=== PATIENT | female | born 1965 | race Caucasian/White ===

== ENCOUNTER 2022-08-28 18:28 | Emergency (ER) | payer BC ==
--- OUTSIDE RECORDS SUMMARY | 2022-08-28 18:31 | XMS REPORT | Continuity of Care Document ---
:1965 Author Organization [facility] [place] t Address [facility] [place] [place] [address] Care Team Providers Name Role Phone Hansa Woodruff Primary Care Physician YIMI HERRERA Attending Clinician Unavailable Temitope Cramer Attending Clinician Unavailable Yimi Herrera MD Attending Clinician Only, Adc Test Attending Clinician Unavailable Doctor Unassigned, [place] Attending Clinician Unavailable AMRITA HENRY Attending Clinician Unavailable Shakira Attending Clinician Unavailable Damion Forrester Attending Clinician [phone] YIMI HERRERA Admitting Clinician Unavailable Temitope Cramer Admitting Clinician Unavailable Yimi eHrrera MD Admitting Clinician AMRITA HENRY Admitting Clinician Unavailable Shakira Admitting Clinician Unavailable Physician, No Primary or Family Admitting Clinician Unavaila ble Payers Payer Name Policy Type Policy Number Effective Date Expiration Date S ource HIM BCJORDI ARAUJO [id number] 2020 ADVANTAGE O 00:00:00 [place]: GAYLE [id number] 2019 ADVANTAGE (HMO) 00:00:00 Problems Condition Condition Condition Status Onset Resolution Last Treating Co mments Source Name Details Category Date Date Treatment Clinician Date Increased Increased Problem Active Gilson ston frequency Frequency 9-08 Metr o of of 00:00: Urology urination Urination 00 Primary Primary Problem Active 2015-10 [place] 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 00 Allergies, Adverse Reactions, Alerts Allergy Allergy Status Severity Reaction(s) Onset Inactive Treating Comm ents Source Name Type Date Date Clinician No Known DA Active U 2018-10 [facility] Allergie 0-16 [place] [facility] 00:[facility]: [facility]ope 00 [facility] HYDROCOD Allergy Active [place] ONE-IBUP to 10-30 [facility] ROFEN substanc 00:00: Urology e 00 NO KNOWN Drug Active Univers ALLERGIE Class ity of S [facility] Codeine Allergy Active [facility] to [facility] substanc Urology e Social History Social Habit Start Date Stop Date Quantity Comments Source Exposure to Not sure [facility] SARS-CoV-2 (event) Medica l Branch Tobacco use and 2021-08-17 2021-08-17 Never used [facility] exposure 00:00:00 00:00:00 [facility] Sex Assigned At [birth year] [facility] 00:00:00 00:00:00 [facility] Smoking Status Start Date Stop Date Source Unknown if ever smoked [facility] Never smoker [facility] Medications Ordered Filled Start Stop Current Ordering Indication Dosage Frequency Signature Comments Components Source Medication Medication Date Date Medication? Clinician (SIG) Name Name jenny 2020-10 Yes PRN, Univer s (GAS RELIEF 0-20 Starting ity of (SIMETHICON 18:07: on Mon E)) 40 00 08/18/21 Medical mg/0.6 mL at 1307, Branch drops Until Discontinu ed, Routine, Intra-op joanniconrajesh 2020-10- No PRN, Unive rs (GAS RELIEF 0-20 10-20 Starting ity of (SIMETHICON 18:07: 21:09 on Mon E)) 40 00 :19 08/18/21 Medical mg/0.6 mL at 1307, Branch drops Until Mon08/18/21 at 1609, Routine, Intra-op lactated 2020-10- No 1000mL at 42 Unive rs ringers IV 0-20 10-20 mL/hr, ity of infusion 17:45: 17:10 1,000 mL, Rashaad as 1,000 mL 00 :00 IV Medical Infusion, Branch ONCE, 1 dose, On Mon08/18/21 at 1245, Routine, Endo Pre-op lactated 2020-10- No 1000mL at 42 Unive rs ringers IV 0-20 10-20 mL/hr, ity of infusion 17:45: 17:10 1,000 mL, Rashaad as 1,000 mL 00 :00 IV Medical Infusion, Branch ONCE, 1 dose, On Mon08/18/21 at 1245, Routine, Endo Pre-op dapaglifloz 2020-10 Yes 10mg Take 10 mg Univers in 0-20 by mouth ity of (FARXIGA) 14:09: daily. [place] 10 mg 19 Medical tablet Branch dulaglutide 2020-10 Yes 1.5mg inject 1.5 Univers (TRULICITY) 0-20 mg under ity of 1.5 mg/0.5 14:09: the skin Rashaad as mL PnIj 19 weekly. Medical Branch dapaglifloz 2020-10 Yes 10mg Take 10 mg Univers in 0-20 by mouth ity of (FARXIGA) 14:09: daily. [place] 10 mg 19 Medical tablet Branch dulaglutide 2020-10 Yes 1.5mg inject 1.5 Univers (TRULICITY) 0-20 mg under ity of 1.5 mg/0.5 14:09: the skin Rashaad as mL PnIj 19 weekly. Medical Branch amoxicillin amoxicillin No amoxicilli [place] [phone] n 875 [facility] mg-potassiu mg-potassiu mg-potassi Urology m m um clavulanate clavulanate clavulanat 125 mg 125 mg e 125 mg tablet tablet tablet Farxiga 10 Farxiga 10 No Farxiga 10 [place] mg tablet mg tablet mg tablet [facility] Lantus Lantus No Lantus [place] Solostar Solostar Solostar Met ro U-100 U-100 U-100 Urology Insulin Insulin Insulin methocarbam methocarbam No methocarba [place] ol 500 mg ol 500 mg mol 500 mg Metro tablet tablet tablet Urology Premarin Premarin No Premarin Gilson ston 0.625 0.625 0.625 [facility] mg/gram mg/gram mg/gram Urolog y vaginal vaginal vaginal cream cream cream Trulicity Trulicity No Trulicity [place] 1.5 mg/0.5 1.5 mg/0.5 1.5 mg/0.5 [facility] mL mL mL Urology subcutaneou subcutaneou subcutaneo s pen s pen us pen injector injector injector valacyclovi valacyclovi No valacyclov [place] r 1 gram r 1 gram ir 1 gram Me tro tablet tablet tablet Urology Zoloft Zoloft No Zoloft [facility] Immunizations Ordered Immunization Filled Immunization Date Status Commen ts Source Name Name influenza, influenza, 2020-08-30 Completed [facility], injectable, 00:00:00 Urology quadrivalent quadrivalent influenza, influenza, 2019-08-30 Completed [facility] injectable, injectable, 00:00:00 Urology quadrivalent quadrivalent influenza, influenza, 2018-08-30 Completed [facility] injectable, injectable, 00:00:00 Urology quadrivalent quadrivalent Vital Signs Vital Name Observation Time Observation Value Comments Source Systolic blood 2021-08-18 18:52:00 135 mm[Hg] [facility] Diastolic blood 2021-08-18 18:52:00 76 mm[Hg] [facility] Heart rate 2021-08-18 18:52:00 81 /min [facility] Respiratory rate 2021-08-18 18:52:00 17 /min [facility] Oxygen saturation in 2021-08-18 18:52:00 99 /min [facility] Arterial blood by [facility] Pulse oximetry Branch Body temperature 2021-08-18 18:27:00 36.39 Balbina [facility] Body height 2021-08-18 17:12:00 157.5 cm [facility] Body weight 2021-08-18 17:12:00 69.854 kg [facility] BMI 2021-08-18 17:12:00 28.17 [facility] Sy[facility]olic blood 2021-08-18 17:12:00 115 mm[Hg] Univer sity of pressure [facility] Diastolic blood 2021-08-18 17:12:00 51 mm[Hg] Unive rsity of pressure [facility] Heart rate 2021-08-18 17:12:00 83 /min [facility] Body temperature 2021-08-18 17:12:00 36.72 Balbina [facility] Respiratory rate 2021-08-18 17:12:00 18 /min [facility] [place] [facility] Body height 2021-08-18 17:12:00 157.5 cm [facility] Body weight 2021-08-18 17:12:00 69.854 kg [facility] BMI 2021-08-18 17:12:00 28.17 kg/m2 [facility] Oxygen saturation in 2021-08-18 17:12:00 100 /min [facility] Ar[facility] blood by [facility] Pulse oximetry Branch Height 2021-06-10 00:00:00 62 [in_i] [facility] Urology BMI (Body Mass 2021-06-10 00:00:00 32 kg/m2 [place] [facility] Index) Urology Body Weight 2021-06-10 00:00:00 175 [lb_av] [facility] Urology Procedures Procedure Date / Time Performing Clinician Source Performed COLONOSCOPY (ENDO) 2021-08-18 17:57:08 Lino [facility] COLONOSCOPY (ENDO) 2021-08-18 17:57:08 Lino [facility] COLONOSCOPY 2021-08-18 17:46:00 Yimi Herrera [facility] CONSENT/REFUSAL FOR 2021-08-17 13:10:52 Doctor Unassigned, No [facility] DIAGNOSIS AND TREATMENT [facility] ASSIGNMENT OF BENEFITS 2021-08-17 13:10:42 Doctor Unassigned, No [facility] ASSIGNMENT OF BENEFITS 2021-08-17 13:10:29 Doctor Unassigned, No [facility] EXTERNAL PROVIDER 2021-08-04 05:01:00 Doctor Unassigned, No [facility] RECORDS Name Medical Branch EXTERNAL PROVIDER 2021-08-04 05:01:00 Doctor Unassigned, No [facility] RECORDS Name [facility] Plan of Care Planned Activity Planned Date Details Comments Source Diagnostic Test 2021-06-10 BMP, serum or [facility] Met ro Pending 00:00:00 plasma [code = BMP, Urology serum or plasma] Diagnostic Test 2021-06-10 urinalysis, [place] Metr o Pending 00:00:00 dipstick [code = Urology urinalysis, dipstick] Encounters Start End Encounter Admission Attending Care Care Encounter Source Date/Time Date/Time Type Type Clinicians Facility Department ID 2021-08-31 Outpatient R [facility] [id number] Univers 07:48:[address] [facility] 2021-09-01 2021-09-01 Outpatient AVELINO Cramer, [facility] [id number] [facility] 12:00:00 12:00:00 [facility]ope [facility] 2021-08-18 2021-08-18 [facility] [id number] Univers 11:44:00 14:00:00 Encounter Yimi mena [id number] ity [place] [id number] [facility] 071 Branch 2021-08-18 2021-08-18 Surgery [facility] [id number] Univers 12:42:00 13:20:00 Yimi mena 350.1.13.10 [place] [id number] [facility] 020 Branch 2021-08-17 2021-08-17 Laboratory Only, Adc Test [facility] [id number]. [id number] Univers 08:12:39 08:27:39 Only Yimi Herrera 350.1.1 3.10 it[place] [id number] [place] [address] Branch 2021-08-17 2021-08-17 Outpatient R OLVIN [facility] [id number] Univers 08:15:00 08:15:00 YIMI Mena f [facility] 2021-08-17 2021-08-17 Orders Doctor NAVEEN [id number] Univers 00:00:00 00:00:00 Only Unassigned, BLESSING 350.1.13.10 ity of [place] [facility] 4.2.7.2.686 [facility] as [id number] [facility] 009 Branch 2021-06-29 2021-07-01 Inpatient E MOVVA, [facility] MED 7500 [facility] 16:12:00 14:20:00 AMRITA 2021-06-30 2021-06-30 Outpatient Goldfarb_R [facility] [id number] [place] 10:45:00 10:45:00 [id number] [facility] 2021-06-10 2021-06-10 Outpatient Goldfarb_R U [facility] [id number] [place] 06:09:00 06:09:00 [id number] [facility] 2021-06-10 2021-06-10 Damion [facility] - [id number] Poncho hartley 00:00:00 00:00:00 Miquel Forrester [facility]: [facility] [facility] [address], [place] [address] , Ph. 2021-06-10 2021-06-10 Outpatient Usama, U [facility] [id number] 00:00:00 00:00:00 Damion [id number] 2021-06-08 2021-06-08 Outpatient Goldfarb_R [facility] [id number] [place] 04:52:00 04:52:00 [id number] [facility] 2020-04-08 2020-04-08 Outpatient AVELINO Cramer [facility] [id number] [address] [facility] 12:00:00 12:00:00 Temitope [facility] Results Test Description Test Time Test Comments Results Result Sour e Comments - XR FLUORO NDL 2019-08-21 Patient Name: 08:01:00 TYREE CARRASQUILLO Unit No: [id number] EXAMS: CPT CODE: [id number] XR FLUORO NDL 21556 Fluoroscopically guided injection of the right shoulder with steroid and lidocaine COMPARISON: No prior exams available. FINDINGS: After informed consent was obtained a needle was placed in the right shoulder with fluoroscopic guidance. Its position was confirmed by injecting air and obtaining an AP radiograph. Subsequently 2 mL of Kenalog 40 mg per cc and 2 mL of 1 percent lidocaine was injected. No immediate complications were encountered. 6 seconds of fluoroscopy time was utilized. IMPRESSION: Technically successful steroid injection of the right shoulder at 0801 Reported and signed by: Moises Levine M.D. CC: Andrew Buchanan MD Technologist: RT Da.(R) Transcribed D/ (800) AdriannaSLJ [facility] NAME: TYREE CARRASQUILLO [address] [facility] PHYS: Andrew Lassiter MD : 1965 AGE: 54 SEX: F [place] [address] LOC: Y.RAD PHONE #: [phone] EXAM DATE: 08/14/2019 STATUS: DEP CLI FAX #: [phone] RAD #: D/C DT PAGE 1 Signed Report Patient Name: TYREE CARRASQUILLO Unit No: [id number] EXAMS: CPT CODE: [id number] XR FLUORO NDL 62684 <Continued> Orig Print D/T: S: 08/21/2019 (0805) [facility] NAME: TYREE CARRASQUILLO [address] [facility] PHYS: Andrew Lassiter MD : 1965 AGE: 54 SEX: F [place] [address] LOC: Y.RAD PHONE #: [phone] EXAM DATE: 08/14/2019 STATUS: DEP CLI FAX #: [phone] RAD #: D/C DT PAGE 2 Signed Report
[2022-08-28] MEDS ORDERED: BUPIVACAINE 0.5% PF 10 ML VIAL ONE (19:28)
[2022-08-28] MEDS ORDERED: LIDOCAINE 1% MPF 30 ML VIAL ONE (19:28)
--- NOTE | 2022-08-28 20:14 | ER ---
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 Coronavirus screen: Vaccine status: Patient reports receiving the 2nd dose of the covid vaccine. Client denies travel out of the [place] in the last 14 days. At this time, the client does not indicate any symptoms associated with coronavirus-19. Ebola Screen: Patient denies travel to an Ebola-affected area in the 21 days before illness onset. Complicating Factors: There are no complicating factors for this patient. Initial Sepsis Screen: Does the patient meet any 2 criteria? No. Patient's initial sepsis screen is negative. Does the patient have a suspected source of infection? Yes: Skin breakdown/wound. Risk Assessment: Do you want to hurt yourself or someone else? Patient reports no desire to harm self or others. Onset of symptoms was August 28, 2022. 18:53 Method Of Arrival: Ambulatory ll1 18:53 Acuity: GEOVANNY 3 ll1 Triage Assessment: 18:55 General: Appears in no apparent distress. Behavior is calm, cooperative, appropriate ll1 for age. Pain: Complains of pain in right hand Quality of pain is described as aching, throbbing. Derm: R hand 4th digit. Injury Description: Laceration. 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 - Social history:: Smoking status: Patient denies any tobacco usage or history of. Screenin:36 Abuse screen: Denies threats or abuse. Denies injuries from another. Nutritional tw5 screening: No deficits noted. Tuberculosis screening: No symptoms or risk factors identified. Fall Risk None identified. Assessment: 20:35 General: Appears in no apparent distress. Behavior is calm, cooperative. tw5 Musculoskeletal: 20:36 Injury Description: Laceration is clean. tw5 Vital Signs: 18:53 BP 117 / 70; Pulse 89; Resp 16; Temp 97.6; Pulse Ox 100% ; Weight 61.23 kg; Height 5 ll1 ft. 2 in. (157.48 cm); Pain 8/10; 18:53 Body Mass Index 24.69 (61.23 kg, 157.48 cm) ll1 ED Course: 18:29 Patient arrived in ED. am2 18:54 Triage completed. ll1 19:09 Ema Brasher FNP-C [facility]. kb 19:09 Stephan Pollard MD is Attending Physician. kb 19:26 Ailyn Fernando is Primary Nurse. tw5 19:32 Dressings: Hipolito x 2 palmar aspect of middle phalanx of right ring finger and palmar mm9 aspect of proximal phalanx of right ring finger. Wound care: to laceration. 19:34 Patient has correct armband on for positive identification. Call light in reach. Adult mm9 w/ patient. 20:36 No provider procedures requiring assistance completed. Patient did not have IV access tw5 during this emergency room visit. 20:36 Splint/sling/ice applied as appropriate. tw5 Administered Medications: 20:12 Drug: Bupivacaine (0.5 %) 1 vials {Note: administered by provider at the bedside.} tw5 Volume: 10 ml; Route: Infiltration; 20:12 Drug: Lidocaine (1 %) 1 vials {Note: administered by the provider at the bedside.} tw5 Volume: 5 ml; Route: Infiltration; Medication: 20:36 VIS not applicable for this client. tw5 Outcome: 20:13 Discharge ordered by . kb 20:36 Discharged to home tw5 20:36 Condition: improved 20:36 Discharge instructions given to patient, Instructed on discharge instructions, follow up and referral plans. Demonstrated understanding of instructions, follow-up care, medications, Prescriptions given X 1. 20:37 Patient left the ED. tw5 Signatures: Ema Brasher FNP-C GETTERING FILAMENT MACHINE OPERATOR-CkMaria C Henriquez am2 Sukumar Calloway RN RN ll1 Ailyn Fernando tw5 Jennie Luis mm9
--- NOTE | 2022-08-28 20:14 | EDPHYS ---
Physician Documentation [facility] Name: Chantell Collins Age: 57 yrs Sex: Female : 1965 Arrival Date: 08/28/2022 Time: 18:29 Bed 11 Private MD: ED Physician Stephan Pollard HPI: 08/28 19:37 This 57 yrs old Female presents to ER via Ambulatory with complaints of Laceration To kb Hand. 19:37 The patient has a laceration related to: washing dishes and cut it on a broken crockpot kb occurred at home, and there are no complicating factors. The injury was accidental. The laceration(s) is(are) located on the palmar aspect of proximal phalanx of right ring finger and palmar aspect of middle phalanx of right ring finger. Onset: The symptoms/episode began/occurred just prior to arrival. Associated signs and symptoms: The patient has no apparent associated signs or symptoms. The patient has not experienced similar symptoms in the past. The patient has not recently seen a physician. 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 - Social history:: Smoking status: Patient denies any tobacco usage or history of. ROS: 19:35 Constitutional: Negative for fever, chills, and weight loss. kb 19:35 Skin: Positive for laceration(s), of the palmar aspect of middle phalanx of right ring finger and palmar aspect of proximal phalanx of right ring finger. 19:35 All other systems are negative. Exam: 19:36 Constitutional: This is a well developed, well nourished patient who is awake, alert, kb and in no acute distress. Head/Face: Normocephalic, atraumatic. ENT: Moist Mucous membranes Cardiovascular: Regular rate and rhythm with a normal S1 and S2. No gallops, murmurs, or rubs. No pulse deficits. Respiratory: Respirations even and unlabored. No increased work of breathing. Talking in full sentences Abdomen/GI: Soft, non-tender. No distention MS/ Extremity: Pulses equal, no cyanosis. Neurovascular intact. Full, normal range of motion. Neuro: Awake and alert, GCS 15, oriented to person, place, time, and situation. Moves all extremities. Normal gait. Psych: Awake, alert, with orientation to person, place and time. Behavior, mood, and affect are within normal limits. 19:36 Skin: injury, laceration(s), the wound is approximately 3 cm(s), of the palmar aspect of proximal phalanx of right ring finger and palmar aspect of middle phalanx of right ring finger, that can be described as clean, no foreign body, irregular, with mild bleeding. Vital Signs: 18:53 BP 117 / 70; Pulse 89; Resp 16; Temp 97.6; Pulse Ox 100% ; Weight 61.23 kg; Height 5 ll1 ft. 2 in. (157.48 cm); Pain 8/10; 18:53 Body Mass Index 24.69 (61.23 kg, 157.48 cm) ll1 Procedures: 19:36 Nerve block: (digital) of palmar aspect of proximal phalanx of right ring finger kb Medication: Lidocaine 1% without epinephrine Marcaine 0.5%, Amount: 5 mls were injected, Effect: the patient has resolution of the pain, Set up for procedure. Performed by Ema LANDIN Patient tolerated well. Laceration: 20:12 Wound Repair of 3cm ( 1.2in ) subcutaneous laceration to palmar aspect of proximal kb phalanx of right ring finger and palmar aspect of middle phalanx of right ring finger. Irregularly shaped.. Distal neuro/vascular/tendon intact. Anesthesia: Digital block administered with 1% lidocaine. Wound prep: Extensive cleansing with betadine by critical systems technician, Wound irrigation with saline by critical systems technician. Skin closed with 9 5-0 Prolene using simple sutures and sterile technique. Patient tolerated well. MDM: 19:17 Patient medically screened. kb 19:35 Data reviewed: vital signs, nurses notes. Data interpreted: Pulse oximetry: on room air kb is 100 %. Interpretation: normal. 19:36 Counseling: I had a detailed discussion with the patient and/or guardian regarding: the kb historical points, exam findings, and any diagnostic results supporting the discharge/admit diagnosis, the need for outpatient follow up, a family practitioner, to return to the emergency department if symptoms worsen or persist or if there are any questions or concerns that arise at home. 08/28 19:17 Order name: Dressing - Wound; Complete Time: 19:32 kb 08/28 19:17 Order name: Gloves, Sterile; Complete Time: 19:32 kb 08/28 19:17 Order name: Prolene, Sutures; Complete Time: 19:32 kb 08/28 19:17 Order name: Setup Suture Tray; Complete Time: 19:32 kb 08/28 20:13 Order name: Finger Splint; Complete Time: 20:35 kb Administered Medications: 20:12 Drug: Bupivacaine (0.5 %) 1 vials {Note: administered by provider at the bedside.} tw5 Volume: 10 ml; Route: Infiltration; 20:12 Drug: Lidocaine (1 %) 1 vials {Note: administered by the provider at the bedside.} tw5 Volume: 5 ml; Route: Infiltration; Disposition Summary: 08/28/22 20:13 Discharge Ordered Location: Home kb Condition: Stable kb Diagnosis - Laceration without foreign body of right ring finger without damage to nail kb Followup: kb - With: Emergency Department - When: As needed - Reason: Worsening of condition Followup: kb - With: Private Physician - When: 2 - 3 days - Reason: Recheck today's complaints, Continuance of care, Re-evaluation by your physician Discharge Instructions: - Discharge Summary Sheet kb - Laceration Care, Adult, [id number] kb Forms: - Medication Reconciliation Form kb - Thank You Letter kb - Antibiotic Education kb - Prescription Opioid Use kb Prescriptions: - Cephalexin 500 mg Oral Capsule - take 1 capsule by ORAL route every 8 hours for 10 days; 30 capsule; Refills: 0, kb Product Selection Permitted Signatures: Ema Brasher, Sukumar Riggs RN RN ll1 Ailyn Fernando tw5 Corrections: (The following items were deleted from the chart) 20:13 19:36 Skin: injury, laceration(s), the wound is approximately 2.5 cm(s), of the palmar kb aspect of proximal phalanx of right ring finger and palmar aspect of middle phalanx of right ring finger, that can be described as clean, no foreign body, irregular, with mild bleeding, kb
[2022-08-28 20:55] VITALS: BP 117/70; TEMP 97.6; O2SAT 100
== END 2022-08-28 20:37 | disposition home or self-care (01) ==
LOC: ER 18:28
PROC: 0JQJ0ZZ Repair Right Hand Subcutaneous Tissue and Fascia, Open Approach (ICD-10-PCS; principal; 2022-08-28)
DX: S61.214A Laceration without foreign body of right ring finger without damage to nail, initial encounter (principal); Z88.5 Allergy status to narcotic agent
CPT/HCPCS: 64450; 99283